=== PATIENT | female | born 1970 | race American Indian/Alaskan Native ===

== ENCOUNTER 2017-06-21 11:43 | Emergency (ER) | payer MEDICARE, OTHER ==
[2017-06-21 13:09] VITALS: BP 128/77
--- NOTE | 2017-06-21 13:43 | Emergency Department Report ---
Blank Doc - Documentation Documentation: She is a 47-year-old female presents with shortness of breath as pain occurring despite using her nebulizers and breathing treatments. I will get CBC troponin EKG breathing treatments checks x-ray steroids and will reevaluate patient.
[2017-06-21] MEDS ORDERED: PROVENTIL IH ONE (13:53)
[2017-06-21] MEDS ORDERED: DELTASONE PO ONE (13:53)
[2017-06-21 14:16] LABS: Basophils % (Auto) 0.9 % (0.0-1.8); Eosinophils # (Auto) 0.2 K/mm3 (0.0-0.4); Eosinophils % (Auto) 4.4 % (0.0-4.3); Hematocrit 34.9 % (30.3-42.9); Hemoglobin 11.3 gm/dl (10.1-14.3); Lymphocytes # (Auto) 1.2 K/mm3 (1.2-5.4); Lymphocytes % (Auto) 26.4 % (13.4-35.0); Mean Corpuscular HGB Conc 32 % (30-34); Mean Corpuscular Volume 78 fl (79-97); Monocytes # (Auto) 0.5 K/mm3 (0.0-0.8); Monocytes % (Auto) 11.1 % (0.0-7.3); Platelet Count 260 K/mm3 (140-440); Red Blood Count 4.48 M/mm3 (3.65-5.03)
--- NOTE | 2017-06-21 14:18 | Emergency Department Report ---
ED Asthma HPI - General Chief Complaint: Adult Asthma Stated Complaint: FLU LIKE SYMPTOMS Time Seen by Provider: 06/21/17 13:42 Source: patient Mode of arrival: Ambulatory Limitations: No Limitations - History of Present Illness Initial Comments: She is a 47-year-old female presents with shortness of breath as pain occurring despite using her nebulizers and breathing treatments. MD Complaint: shortness of breath, wheezing Onset/Timin -: week(s) Asthma History: adult onset Severity: moderate Context: none known Associated Symptoms: productive cough, chest pain Treatments Prior to Arrival: inhaled bronchodilator, inhaled steroid - Related Data Current Asthma Therapy: inhaled bronchodilator, inhaled steroid Previous Rx's Medication Instructions Recorded Last Taken Type ALBUTEROL NEB's [Proventil 0.083% 2.5 mg IH QID PRN #25 ampul 06/21/17 Unknown Rx NEBS] Azithromycin [Zithromax Z-JULIEN] 250 mg PO DAILY #6 tab 06/21/17 Unknown Rx Codeine Phosphate/Guaifenesin 5 ml PO TID PRN #120 ml 06/21/17 Unknown Rx [Guaifenesin-Codeine Syrup] Ibuprofen 800 mg PO TID PRN #30 tablet 06/21/17 Unknown Rx predniSONE [Deltasone] 40 mg PO QDAY #10 tab 06/21/17 Unknown Rx Allergies Allergy/AdvReac Type Severity Reaction Status Date / Time No Known Allergies Allergy Unverified 06/21/17 13:05 ED Review of Systems ROS: Stated complaint: FLU LIKE SYMPTOMS Other details as noted in HPI Constitutional: denies: chills, fever Eyes: denies: eye pain, eye discharge, vision change ENT: congestion Respiratory: cough, shortness of breath, wheezing Cardiovascular: denies: chest pain, palpitations Endocrine: no symptoms reported Gastrointestinal: denies: abdominal pain, nausea, diarrhea Genitourinary: denies: urgency, dysuria, discharge Musculoskeletal: denies: back pain, joint swelling, arthralgia Skin: denies: rash, lesions Neurological: denies: headache, weakness, paresthesias Psychiatric: denies: anxiety, depression Hematological/Lymphatic: denies: easy bleeding, easy bruising ED Past Medical Hx - Past Medical History Previous Medical History?: Yes Hx Asthma: Yes Additional medical history: GOLDEN - Surgical History Past Surgical History?: No - Social History Smoking Status: Never Smoker Substance Use Type: Alcohol - Medications Home Medications: Home Medications Medication Instructions Recorded Confirmed Last Taken Type ALBUTEROL NEB's [Proventil 0.083% 2.5 mg IH QID PRN #25 ampul 06/21/17 Unknown Rx NEBS] Azithromycin [Zithromax Z-JULIEN] 250 mg PO DAILY #6 tab 06/21/17 Unknown Rx Codeine Phosphate/Guaifenesin 5 ml PO TID PRN #120 ml 06/21/17 Unknown Rx [Guaifenesin-Codeine Syrup] Ibuprofen 800 mg PO TID PRN #30 tablet 06/21/17 Unknown Rx predniSONE [Deltasone] 40 mg PO QDAY #10 tab 06/21/17 Unknown Rx ED Physical Exam - General Limitations: No Limitations General appearance: alert, in no apparent distress - Head Head exam: Present: atraumatic, normocephalic - Eye Eye exam: Present: normal appearance, PERRL, EOMI Pupils: Present: normal accommodation - ENT ENT exam: Present: normal orophraynx, mucous membranes moist, TM's normal bilaterally - Neck Neck exam: Present: normal inspection, full ROM. Absent: tenderness, meningismus, lymphadenopathy, thyromegaly - Respiratory Respiratory exam: Present: wheezes, rhonchi. Absent: respiratory distress, chest wall tenderness - Cardiovascular Cardiovascular Exam: Present: regular rate, normal rhythm. Absent: systolic murmur, diastolic murmur, rubs, gallop - GI/Abdominal GI/Abdominal exam: Present: soft, normal bowel sounds - Rectal Rectal exam: Present: deferred - Extremities Exam Extremities exam: Present: normal inspection, full ROM, normal capillary refill - Back Exam Back exam: Present: normal inspection, full ROM. Absent: tenderness - Neurological Exam Neurological exam: Present: alert, oriented X3, CN II-XII intact, normal gait, reflexes normal - Psychiatric Psychiatric exam: Present: normal affect, normal mood - Skin Skin exam: Present: warm, dry, intact, normal color. Absent: rash ED Course Vital Signs 06/21/17 06/21/17 13:05 14:35 Temperature 98.7 F Pulse Rate 81 Respiratory 22 18 Rate Blood Pressure 128/77 O2 Sat by Pulse 97 Oximetry ED Medical Decision Making - Lab Data Result diagrams: 06/21/17 13:54 06/21/17 13:54 Laboratory Tests 06/21/17 06/21/17 06/21/17 13:54 13:54 13:54 WBC 4.7 RBC 4.48 Hgb 11.3 Hct 34.9 MCV 78 L MCH 25 L MCHC 32 RDW 16.0 H Plt Count 260 Lymph % (Auto) 26.4 [place] % (Auto) 11.1 H Eos % (Auto) 4.4 H Baso % (Auto) 0.9 Lymph # 1.2 [place] # 0.5 Eos # 0.2 Baso # 0.0 Seg Neutrophils % 57.2 Seg Neutrophils # 2.7 APTT 28.1 Sodium Potassium Chloride Carbon Dioxide Anion Gap BUN Creatinine Estimated GFR BUN/Creatinine Ratio Glucose Calcium Total Bilirubin AST ALT Alkaline Phosphatase Troponin T < 0.010 Total Protein Albumin Albumin/Globulin Ratio HCG, Qual Urine Color Urine Turbidity Urine pH Ur Specific [place] Urine Protein Urine Glucose (UA) Urine Ketones Urine Blood Urine Nitrite Ur Reducing Substances Urine Bilirubin Urine Ictotest Urine Urobilinogen Ur Leukocyte Esterase Urine WBC (Auto) Urine RBC (Auto) U Epithel Cells (Auto) Urine Mucus Urine HCG, Qual 06/21/17 06/21/17 06/21/17 13:54 13:56 Unknown WBC RBC Hgb Hct MCV MCH MCHC RDW Plt Count Lymph % (Auto) [place] % (Auto) Eos % (Auto) Baso % (Auto) Lymph # [place] # Eos # Baso # Seg Neutrophils % Seg Neutrophils # APTT Sodium 136 L Potassium 3.5 L Chloride 98.0 Carbon Dioxide 28 Anion Gap 14 BUN 8 Creatinine 0.7 Estimated GFR > 60 BUN/Creatinine Ratio 11 Glucose 82 Calcium 9.1 Total Bilirubin 0.30 AST 16 ALT 12 Alkaline Phosphatase 79 Troponin T < 0.010 Total Protein 7.6 Albumin 4.3 Albumin/Globulin Ratio 1.3 HCG, Qual Negative Urine Color Yellow Urine Turbidity Clear Urine pH 6.0 Ur Specific [place] 1.023 Urine Protein <15 mg/dl Urine Glucose (UA) Neg Urine Ketones Neg Urine Blood Neg Urine Nitrite Neg Ur Reducing Substances Not Reportable Urine Bilirubin Neg Urine Ictotest Not Reportable Urine Urobilinogen < 2.0 Ur Leukocyte Esterase Neg Urine WBC (Auto) 1.0 Urine RBC (Auto) 1.0 U Epithel Cells (Auto) 1.0 Urine Mucus Few Urine HCG, Qual Negative - Medical Decision Making She is a 47-year-old female presents with shortness of breath as pain occurring despite using her nebulizers and breathing treatments. pt lungs improved with neb tx and prednisone pt is now ambulatory in ed without sob no wheezing no dizziness no cp, trop: <0.01, cmp: normal, cbc: normal, cxr: no infiltrates no opacities, ekg: nsr NSTEMI, heart score is 0, plan: tx for bronchitis , URI: Ludy Fernandes, pt will picku ADVAIR today, has albuerol , ibuprofen prn pain pt will follow up with pcp in 2-3 days return to ed if symptoms worsen. pt verbalized agreement and understanding of discharge plan. Critical care attestation.: If time is entered above; I have spent that time in minutes in the direct care of this critically ill patient, excluding procedure time. ED Disposition Clinical Impression: Bronchitis Disposition: TO HOME OR SELFCARE Is pt being admited?: No Does the pt Need Aspirin: No Condition: Good Instructions: Acute Bronchitis (ED), Upper Respiratory Infection (ED), Chronic Bronchitis (ED) Prescriptions: ALBUTEROL NEB's [Proventil 0.083% NEBS] 2.5 mg IH QID PRN #25 ampul PRN Reason: shortness of breath wheezing Azithromycin [Zithromax Z-JULIEN] 250 mg PO DAILY #6 tab Codeine Phosphate/Guaifenesin [Guaifenesin-Codeine Syrup] 5 ml PO TID PRN #120 ml PRN Reason: cough Ibuprofen 800 mg PO TID PRN #30 tablet PRN Reason: pain fever predniSONE [Deltasone] 40 mg PO QDAY #10 tab Referrals: PRIMARY CARE, [Primary Care Provider] - 3-5 Days [facility] [Outside] - 3-5 Days Forms: Work/School Release Form(ED) Time of Disposition: 15:25
[2017-06-21 14:26] LABS: HCG Qualitative,Urine Negative (Negative)
[2017-06-21 14:30] LABS: Bilirubin,Urine NEG (Negative); Blood,Urine NEG (Negative); Color,Urine Yellow (Yellow); Mucus,Urine FEW /HPF; Protein,Urine <15 mg/dL mg/dL (Negative); Urobilinogen,Urine < 2.0 mg/dL (<2.0)
[2017-06-21 14:46] LABS: Mean Corpuscular Hemoglobin 25 pg (28-32)
[2017-06-21 14:48] LABS: Alanine Aminotransferase 12 units/L (7-56); Albumin 4.3 g/dL (3.9-5); BUN/Creatinine Ratio 11; Blood Urea Nitrogen 8 mg/dL (7-17); Calcium 9.1 mg/dL (8.4-10.2); Hemolysis Index 1
--- NOTE | 2017-06-21 15:09 | XRay Report ---
ROUTINE CHEST, TWO VIEWS: HISTORY: short of breath. The trachea, heart, mediastinal contour, lung sterling and bony thorax are unremarkable. IMPRESSION: Unremarkable chest x-ray.
== END 2017-06-21 15:55 | disposition home or self-care (01) ==
LOC: ED 11:43
DX: J40 Bronchitis, not specified as acute or chronic (principal)
CPT/HCPCS: 36415; 71046; 80053; 81001; 81025; 84484; 84703; 85025; 85730; 99284; J7512